=== PATIENT | female | born 1985 | race Caucasian/White ===

== ENCOUNTER 2018-03-10 11:01 | Emergency (ER) | payer BC, OTHER ==
[2018-03-10 11:06] VITALS: TEMP 98.3
[2018-03-10 11:31] LABS: Appearance,Urine Turbid (Clear); Bacteria,Urine Few /hpf; Bilirubin,Urine Negative (Negative); Blood,Urine Small (Negative); Color,Urine Yellow; Glucose,Urine (UA) Negative (Negative); Ketones,Urine Negative (Negative); Leukocyte Esterase,Urine Large (Negative); Mucus,Urine Rare /hpf; Nitrite,Urine Negative (Negative); PH, Urine 7.5 (5.0-8.0); Protein,Urine 1+ (Negative); RBC,Urine 19 /hpf (0-5); Specific Gravity,Urine 1.013 (1.001-1.035); Squamous Epithelial Cell,Urine 12 /hpf (0-4); WBC,Urine >182 /hpf (0-5)
[2018-03-10] MEDS ORDERED: cefTRIAXone 1,000 MG VIAL (IM USE) IM STA (11:37)
--- NOTE | 2018-03-10 11:40 | ED ---
Female Urogenital HPI - General Chief complaint: Urogenital Stated complaint: Female Time Seen by Provider: 03/10/18 11:31 Source: patient, RN notes reviewed Mode of arrival: ambulatory Limitations: no limitations - History of Present Illness Initial comments: 32-year-old female presents emergency Department with chief complaint of dysuria. Patient states started a few days ago scheduled appointment with PCP back canal attempted to complaint. She states she developed some mild back discomfort last night into this morning. She denies any nausea vomiting diarrhea constipation. Denies any known fever or chills. Patient states that it barfield every time she urinates she has been increasing her fluids. She has had frequent urinary tract infections. She denies any vaginal bleeding vaginal discharge. She's had a prior tubal ligation. - Related Data Previous Rx's Medication Instructions Recorded traMADol HCl [Ultram] 50 mg PO Q6H PRN #10 tab 12/21/15 Ciprofloxacin HCl [Cipro] 500 mg PO Q12HR #20 tablet 03/10/18 Allergies Allergy/AdvReac Type Severity Reaction Status Date / Time aspirin AdvReac Nausea & Verified 03/10/18 11:06 Vomiting Review of Systems ROS Statement: Those systems with pertinent positive or pertinent negative responses have been documented in the HPI. ROS Other: All systems not noted in ROS Statement are negative. Past Medical History Past Medical History: No Reported History History of Any Multi-Drug Resistant Organisms: None Reported Past Surgical History: Appendectomy, Tubal Ligation Past Psychological History: No Psychological Hx Reported Smoking Status: Current every day smoker Past Alcohol Use History: Rare Past Drug Use History: Marijuana General Exam Limitations: no limitations General appearance: alert, in no apparent distress Head exam: Present: atraumatic, normocephalic, normal inspection Neck exam: Present: normal inspection, full ROM. Absent: tenderness, meningismus, lymphadenopathy Respiratory exam: Present: normal lung sounds bilaterally. Absent: respiratory distress, wheezes, rales, rhonchi, stridor Cardiovascular Exam: Present: regular rate, normal rhythm, normal heart sounds. Absent: systolic murmur, diastolic murmur, rubs, gallop, clicks GI/Abdominal exam: Present: soft, tenderness (Mild suprapubic tenderness), normal bowel sounds. Absent: distended, guarding, rebound, rigid Back exam: Present: CVA tenderness (R) (Very minimal). Absent: CVA tenderness ( L) Skin exam: Present: warm, dry, intact, normal color. Absent: rash Course Vital Signs 03/10/18 11:02 Temperature 98.3 F Pulse Rate 77 Respiratory 18 Rate Blood Pressure 125/84 O2 Sat by Pulse 100 Oximetry Medical Decision Making - Medical Decision Making 32-year-old female presented from for dysuria. Patient is found have urinary tract infection. Patient is afebrile normal vitals. Patient has essentially a minimal right CVA tenderness. Patient given Rocephin this time, discharged on ciprofloxacin for 10 days. Patient will have urine culture. Patient will return turn to emergency department symptoms worsen and follow-up with PCP. - Lab Data Lab Results 03/10/18 Range/Units Unknown Urine Color Yellow Urine Appearance Turbid H (Clear) Urine pH 7.5 (5.0-8.0) Ur Specific [place] 1.013 (1.001-1.035) Urine Protein 1+ H (Negative) Urine Glucose (UA) Negative (Negative) Urine Ketones Negative (Negative) Urine Blood Small H (Negative) Urine Nitrite Negative (Negative) Urine Bilirubin Negative (Negative) Urine Urobilinogen 2.0 (<2.0) mg/dL Ur Leukocyte Esterase Large H (Negative) Urine RBC 19 H (0-5) /hpf Urine WBC >182 H (0-5) /hpf Urine WBC Clumps Moderate H (None) /hpf Ur Squamous Epith Cells 12 H (0-4) /hpf Urine Bacteria Few H (None) /hpf Urine Mucus Rare H (None) /hpf Disposition Clinical Impression: Urinary tract infection Disposition: HOME SELF-CARE Condition: Stable Instructions: Urinary Tract Infection in Women (ED) Additional Instructions: Please return to the Emergency Department if symptoms worsen or any other concerns. Prescriptions: Ciprofloxacin HCl [Cipro] 500 mg PO Q12HR #20 tablet Is patient prescribed a controlled substance at d/c from ED?: No Referrals: Michelle Foster MD [Primary Care Provider] - 1-2 days Time of Disposition: 11:40
[2018-03-10 11:49] VITALS: BP 116/70; PULSE 82; RESP 16
== END 2018-03-10 12:08 | disposition home or self-care (01) ==
LOC: EC 11:01
DX: N39.0 Urinary tract infection, site not specified (principal); F17.200 Nicotine dependence, unspecified, uncomplicated; Z90.49 Acquired absence of other specified parts of digestive tract; Z98.51 Tubal ligation status; Z88.6 Allergy status to analgesic agent
CPT/HCPCS: 81001; 87086; 99283; 96372; J0696

== ENCOUNTER 2020-04-12 15:26 | Emergency (ER) | payer OTHER ==
[2020-04-12 15:32] VITALS: RESP 18
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
[2020-04-12] MEDS ORDERED: oxyCODONE-APAP 10-325MG 1 EACH TAB PO STA (17:00)
[2020-04-12 17:41] VITALS: BP 127/81; PULSE 89; TEMP 98
== END 2020-04-12 17:40 | disposition home or self-care (01) ==
LOC: EC 15:26
DX: S32.10XA Unspecified fracture of sacrum, initial encounter for closed fracture (principal); F17.200 Nicotine dependence, unspecified, uncomplicated; Z88.6 Allergy status to analgesic agent; Z91.011 Allergy to milk products; Y04.0XXA Assault by unarmed brawl or fight, initial encounter
CPT/HCPCS: 70450; 72125; 72131; 72192; 99284

== ENCOUNTER 2020-06-07 18:44 | Emergency (ER) | payer OTHER ==
[2020-06-07 18:49] VITALS: RESP 16; TEMP 98.1
[2020-06-07] MEDS ORDERED: ONDANSETRON 4 MG ODT STARTER PACK 2 TAB BTL PO STA (19:15)
[2020-06-07] MEDS ORDERED: ACETAMINOPHEN TAB 500 MG TAB PO STA (19:15)
[2020-06-07] MEDS ORDERED: TOPICAL SKIN ADHESIVE 1 EACH AMP TOPICAL ONE (19:16)
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
[2020-06-07 21:05] VITALS: BP 112/79; PULSE 81
== END 2020-06-07 21:05 | disposition home or self-care (01) ==
LOC: EC 18:44
DX: S06.0X9A Concussion with loss of consciousness of unspecified duration, initial encounter (principal); S01.81XA Laceration without foreign body of other part of head, initial encounter; F17.200 Nicotine dependence, unspecified, uncomplicated; Z88.6 Allergy status to analgesic agent; Z88.5 Allergy status to narcotic agent; Z91.011 Allergy to milk products; W20.8XXA Other cause of strike by thrown, projected or falling object, initial encounter
CPT/HCPCS: 70450; 99283; 12011; S0119

== ENCOUNTER 2020-06-24 07:49 | Emergency (ER) | payer OTHER ==
[2020-06-24 07:55] VITALS: BP 128/80; PULSE 81; RESP 18; TEMP 98.6
[2020-06-24] MEDS ORDERED: IBUPROFEN 600 MG TAB PO STA (08:04)
--- NOTE | 2020-06-24 08:06 | ED ---
Abdominal Pain HPI - General Chief Complaint: Abdominal Pain Stated Complaint: Cramping Time Seen by Provider: 06/24/20 07:59 Source: patient, RN notes reviewed Mode of arrival: ambulatory Limitations: no limitations - History of Present Illness Initial Comments: 35-year-old female presents emergency Department chief complaint of lower abdominal cramping. Patient states she has is across while secondary to pelvic congestion syndrome. Patient states that this feels very similar but she also feels like she has urinary tract infection. Patient denies any fever or Chills no flank pain denies any chance states that prior tubal ligation. She has mild vaginal discharge but this is not out of the usual. Patient has no concerns for STDs. Patient denies any chest pain, shortness breath no headache, dizziness - Related Data Previous Rx's Medication Instructions Recorded Ondansetron [Zofran ODT] 4 mg PO Q8HR PRN #10 tab 06/07/20 Fluconazole [Diflucan] 150 mg PO ONCE #2 tab 06/24/20 Ibuprofen [Motrin] 600 mg PO Q8HR PRN #20 tab 06/24/20 metroNIDAZOLE [Flagyl] 500 mg PO TID #21 tab 06/24/20 Allergies Allergy/AdvReac Type Severity Reaction Status Date / Time acetaminophen [From Percocet] AdvReac Hallucinati Verified 06/24/20 07:55 ons aspirin AdvReac Nausea & Verified 06/24/20 07:55 Vomiting milk AdvReac Nausea & Verified 06/24/20 07:55 Vomiting oxycodone [From Percocet] AdvReac Hallucinati Verified 06/24/20 07:55 ons Review of Systems ROS Statement: Those systems with pertinent positive or pertinent negative responses have been documented in the HPI. ROS Other: All systems not noted in ROS Statement are negative. Past Medical History Past Medical History: No Reported History History of Any Multi-Drug Resistant Organisms: None Reported Past Surgical History: Appendectomy, Tubal Ligation Past Psychological History: No Psychological Hx Reported Smoking Status: Current every day smoker Past Alcohol Use History: Occasional Past Drug Use History: Marijuana General Exam Limitations: no limitations General appearance: alert, in no apparent distress Head exam: Present: atraumatic, normocephalic, normal inspection Respiratory exam: Present: normal lung sounds bilaterally. Absent: respiratory distress, wheezes, rales, rhonchi, stridor Cardiovascular Exam: Present: regular rate, normal rhythm, normal heart sounds. Absent: systolic murmur, diastolic murmur, rubs, gallop, clicks GI/Abdominal exam: Present: soft, tenderness (Mild suprapubic), normal bowel sounds. Absent: distended, guarding, rebound, rigid Back exam: Absent: CVA tenderness (R), CVA tenderness (L) Neurological exam: Present: alert, oriented X3 Skin exam: Present: warm, dry, intact, normal color. Absent: rash Course Vital Signs 06/24/20 07:53 Temperature 98.6 F Pulse Rate 81 Respiratory 18 Rate Blood Pressure 128/80 O2 Sat by Pulse 100 Oximetry Medical Decision Making - Medical Decision Making 35-year-old female presented for lower abdominal cramping. She is chronic from her vascular congestion syndrome. Patient had a urinalysis which was unremarkable. Patient states she had some vaginal discharge recommended and offered pelvic exam patient states that she would've preferred just to be treated for bacterial vaginosis that she's had this in the past and seems similar. She has no concerns for STDs. Patient will be discharged in stable condition return parameters were discussed. - Lab Data Lab Results 06/24/20 06/24/20 Range/Units 08:12 08:12 Urine Color Yellow Urine Appearance Cloudy H (Clear) Urine pH 5.5 (5.0-8.0) Ur Specific [place] 1.020 (1.001-1.035) Urine Protein Negative (Negative) Urine Glucose (UA) Negative (Negative) Urine Ketones Negative (Negative) Urine Blood Small H (Negative) Urine Nitrite Negative (Negative) Urine Bilirubin Negative (Negative) Urine Urobilinogen <2.0 (<2.0) mg/dL Ur Leukocyte Esterase Negative (Negative) Urine RBC 4 (0-5) /hpf Urine WBC 1 (0-5) /hpf Ur Squamous Epith Cells 13 H (0-4) /hpf Urine Mucus Rare H (None) /hpf Urine HCG, Qual Not Detected (Not Detectd) Disposition Clinical Impression: Abdominal pain Disposition: HOME SELF-CARE Condition: Stable Instructions (If sedation given, give patient instructions): Abdominal Pain (ED) Additional Instructions: Please return to the Emergency Department if symptoms worsen or any other co ncerns. Prescriptions: Fluconazole [Diflucan] 150 mg PO ONCE #2 tab metroNIDAZOLE [Flagyl] 500 mg PO TID #21 tab Ibuprofen [Motrin] 600 mg PO Q8HR PRN #20 tab PRN Reason: Pain Is patient prescribed a controlled substance at d/c from ED?: No Referrals: None,Stated [Primary Care Provider] - 1-2 days Time of Disposition: 08:32
[2020-06-24 08:24] LABS: Appearance,Urine Cloudy (Clear); Bilirubin,Urine Negative (Negative); Blood,Urine Small (Negative); Color,Urine Yellow; Glucose,Urine (UA) Negative (Negative); Ketones,Urine Negative (Negative); Leukocyte Esterase,Urine Negative (Negative); Mucus,Urine Rare /hpf; Nitrite,Urine Negative (Negative); PH, Urine 5.5 (5.0-8.0); Protein,Urine Negative (Negative); RBC,Urine 4 /hpf (0-5); Squamous Epithelial Cell,Urine 13 /hpf (0-4); Urobilinogen,Urine <2.0 mg/dL (<2.0); WBC,Urine 1 /hpf (0-5)
== END 2020-06-24 08:49 | disposition home or self-care (01) ==
LOC: EC 07:49
DX: R10.30 Lower abdominal pain, unspecified (principal); N94.89 Other specified conditions associated with female genital organs and menstrual cycle; N89.8 Other specified noninflammatory disorders of vagina; F17.200 Nicotine dependence, unspecified, uncomplicated; Z88.5 Allergy status to narcotic agent; Z88.6 Allergy status to analgesic agent; Z91.011 Allergy to milk products; Z90.89 Acquired absence of other organs; Z98.51 Tubal ligation status
CPT/HCPCS: 81001; 81025; 99284

== ENCOUNTER 2022-03-14 10:22 | Emergency (ER) | payer OTHER ==
[2022-03-14] MEDS ORDERED: SODIUM CHLORIDE 0.9% 1,000 ML IV STA (10:45)
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
[2022-03-14 11:33] LABS: Basophils # (A) 0.1 k/uL (0-0.2); Basophils % (A) 1 %; Eosinophils # (A) 0.1 k/uL (0-0.7); Eosinophils % (A) 2 %; HCT 41.6 % (34.0-46.0); HGB 13.4 gm/dL (11.4-16.0); Lymphocytes % (A) 34 %; MCH 31.5 pg (25.0-35.0); MCHC 32.1 g/dL (31.0-37.0); MCV 98.3 fL (80.0-100.0); Mean Platelet Volume 7.8; Monocytes # (A) 0.4 k/uL (0-1.0); Monocytes % (A) 6 %; Neutrophils # (A) 3.2 k/uL (1.3-7.7); Neutrophils % (A) 55 %; Platelet Count 220 k/uL (150-450); RBC 4.23 m/uL (3.80-5.40); RDW 12.8 % (11.5-15.5); WBC 5.8 k/uL (3.8-10.6)
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
[2022-03-14 11:49] LABS: ALT 16 U/L (4-34); AST 32 U/L (14-36); African American GFR (CKD) >90 (>60 ml/min/1.73 sqM); Albumin 4.6 g/dL (3.5-5.0); Alkaline Phosphatase 47 U/L (38-126); Anion Gap 8 mmol/L; Blood Urea Nitrogen 9 mg/dL (7-17); Calcium 9.2 mg/dL (8.4-10.2); Carbon Dioxide 24 mmol/L (22-30); Chloride 106 mmol/L (98-107); Creatine Kinase 471 U/L (30-135); Glucose 95 mg/dL (74-99); Non-African American GFR(CKD) >90 (>60 ml/min/1.73 sqM); Potassium 4.2 mmol/L (3.5-5.1); Sodium 138 mmol/L (137-145); Total Bilirubin 0.2 mg/dL (0.2-1.3); Total Protein 7.5 g/dL (6.3-8.2)
[2022-03-14 11:58] LABS: Appearance,Urine Clear (Clear); Bilirubin,Urine Negative (Negative); Blood,Urine Negative (Negative); Color,Urine Light Yellow; Glucose,Urine (UA) Negative (Negative); Ketones,Urine Negative (Negative); Leukocyte Esterase,Urine Negative (Negative); Nitrite,Urine Negative (Negative); PH, Urine 7.5 (5.0-8.0); Protein,Urine Negative (Negative); Specific Gravity,Urine 1.003 (1.001-1.035); Urobilinogen,Urine <2.0 mg/dL (<2.0)
[2022-03-14] MEDS ORDERED: KETOROLAC 15 MG/ML 1 ML VIAL IM STA (12:29)
[2022-03-14 12:49] VITALS: RESP 16
[2022-03-14 13:06] VITALS: BP 128/76; PULSE 55; TEMP 97.7
== END 2022-03-14 13:12 | disposition home or self-care (01) ==
LOC: EC 10:22
DX: T75.4XXA Electrocution, initial encounter (principal); F17.200 Nicotine dependence, unspecified, uncomplicated; Z88.6 Allergy status to analgesic agent; Z91.011 Allergy to milk products; Z88.5 Allergy status to narcotic agent
CPT/HCPCS: 99285 ×2; 96360 ×2; 96372 ×2; 36415; 80053; 82550; 83605; 83735; 84484; 85025; 81003; 71046; J1885

== ENCOUNTER 2024-07-19 07:44 | Emergency (ER) | payer BC ==
[2024-07-19 07:49] VITALS: RESP 18
[2024-07-19] MEDS ORDERED: CYCLOBENZAPRINE 10 MG TAB PO STA (08:03)
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
[2024-07-19] MEDS: ORPHENADRINE 30 MG/ML 2 ML VIAL IM STA (08:13)
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
[2024-07-19 09:15] VITALS: BP 102/64; PULSE 66; TEMP 98.1
== END 2024-07-19 09:15 | disposition home or self-care (01) ==
LOC: EC 07:44
DX: S30.810A Abrasion of lower back and pelvis, initial encounter (principal); S09.90XA Unspecified injury of head, initial encounter; M54.2 Cervicalgia; F17.290 Nicotine dependence, other tobacco product, uncomplicated; Z88.5 Allergy status to narcotic agent; Z88.6 Allergy status to analgesic agent; Z91.011 Allergy to milk products; V89.2XXA Person injured in unspecified motor-vehicle accident, traffic, initial encounter; Y92.410 Unspecified street and highway as the place of occurrence of the external cause
CPT/HCPCS: 72050; 73502; 71046; 99284; 96372; J2360

== ENCOUNTER 2024-10-20 13:00 | Emergency (ER) | payer BC, OTHER ==
[2024-10-20 13:06] VITALS: TEMP 98.1
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
[2024-10-20 15:22] VITALS: BP 124/72; PULSE 69; RESP 16
== END 2024-10-20 15:22 | disposition home or self-care (01) ==
LOC: EC 13:00
DX: S16.1XXA Strain of muscle, fascia and tendon at neck level, initial encounter (principal); M25.512 Pain in left shoulder; R07.89 Other chest pain; R00.1 Bradycardia, unspecified; F17.290 Nicotine dependence, other tobacco product, uncomplicated; V43.52XA Car driver injured in collision with other type car in traffic accident, initial encounter; Y92.410 Unspecified street and highway as the place of occurrence of the external cause
CPT/HCPCS: 70450; 71046; 72125; 93005; 99285